=== PATIENT | female | born 1960 | race Two or more races ===

== ENCOUNTER 2024-05-20 10:07 | Emergency (ER) | payer OTHER ==
[~2024-05-20] VITALS: Ht 167.6 cm; Wt 68.0 kg
[2024-05-20 10:08] VITALS: O2SAT 98
[2024-05-20] MEDS ORDERED: DICYCLOMINE 10 MG/5 ML ORAL SYR PO STA (10:21)
[2024-05-20] MEDS: MAGNESIUM/ALUMINUM HYDROXIDE/SIMETHICONE 30ML UDC PO STA (10:21)
[2024-05-20] MEDS: MORPHINE SULFATE 4 MG/ML INJ (FOR IV/IM USE) IV STA (11:09)
[2024-05-20] MEDS: FAMOTIDINE 20MG/2ML VIAL IV STA (11:09)
[2024-05-20] MEDS: ONDANSETRON HCL 4MG/2ML INJ IV STA (11:09)
[2024-05-20] MEDS: SODIUM CHLORIDE 0.9% 1,000 ML IV ONE (11:09)
[2024-05-20 11:33] LABS: HEMOGLOBIN. 16.6 g/dL (12.0-16.0); MEAN CORPUSCULAR HEMOGLOBIN 33.6 pg (28.0-32.0); MEAN CORPUSCULAR HGB CONC 33.2 g/dL (31.0-37.0); MEAN CORPUSCULAR VOLUME 101.3 fL (81.0-99.0); MEAN PLATELET VOLUME 7.4 fl (7.4-10.4); PLATELET 381 x1000/uL (130-400); RED BLOOD CELL COUNT 4.94 mill/uL (4.2-5.4); RED CELL DISTRIBUTION WIDTH 13.7 % (11.6-14.6); WHITE BLOOD COUNT 19.8 x1000/uL (4.5-11.0)
[2024-05-20 11:37] LABS: CHLORIDE 102 mEq/L (98-107); DIFFERENTIAL COMMENT 1; POTASSIUM 3.7 mEq/L (3.5-5.1); SODIUM 139 mEq/L (136-145)
[2024-05-20 11:38] LABS: CALCIUM 10.5 mg/dL (8.7-10.4); CARBON DIOXIDE 18 mEq/L (21-32)
[2024-05-20 11:41] VITALS: TEMP 36.5; O2SAT 98
[2024-05-20 11:43] LABS: CREATININE 1.1 mg/dL (0.6-1.0); GLUCOSE 141 mg/dL (70-105); UREA NITROGEN BLOOD 14 mg/dL (9-23)
[2024-05-20 11:44] LABS: ALANINE AMINOTRANSFERASE 27 IU/L (10-49); ASPARTATE AMINOTRANSFERASE 30 IU/L (<34)
[2024-05-20 11:45] LABS: BILIRUBIN DIRECT 0.3 mg/dL (<=3.0); BILIRUBIN TOTAL 1.3 mg/dL (0.1-1.0); PROTEIN TOTAL 7.7 g/dL (6.0-8.3)
[2024-05-20] MEDS: DICYCLOMINE HCL 10MG CAPSULE PO NR (11:51)
[2024-05-20 12:40] LABS: TROPONIN I HIGH SENSITIVITY < 4 ng/L (3.0-34)
[2024-05-20] MEDS: SODIUM CHLORIDE 0.9% (SEPSIS BOLUS) IV ONE (13:19)
[2024-05-20] MEDS ORDERED: TOPUD PO (13:26)
[2024-05-20] MEDS ORDERED: ONDA4TAB50 PO (13:26)
[2024-05-20 13:53] LABS: PLATELET ESTIMATE NORMAL
[2024-05-20 13:59] VITALS: BP 155/71; PULSE 117; RESP 16
[2024-05-20] MEDS: KETOROLAC 30MG/ML VIAL IV ONE (13:59)
== END 2024-05-20 17:19 | disposition home or self-care (01) ==
LOC: ER 10:07
DX: R10.84 Generalized abdominal pain (principal); E78.00 Pure hypercholesterolemia, unspecified; I11.9 Hypertensive heart disease without heart failure
CPT/HCPCS: 99285; 74176; 96374; 96375; 96361; 80076; 80048; 83690; 85025; 84484; 36415; 93005; J1885; J3490; J2405; J2270; J7030